=== PATIENT | male | born 1970 | race Caucasian/White ===

== ENCOUNTER → 2016-06-09 | Outpatient (CLI) | payer OTHER | LOC: KOH-I 13:27 | DX: M54.2 Cervicalgia (principal); M54.9 Dorsalgia, unspecified; M50.30 Other cervical disc degeneration, unspecified cervical region; M47.814 Spondylosis without myelopathy or radiculopathy, thoracic region | CPT/HCPCS: 72050; 72070; 72110 ==

== ENCOUNTER → 2020-10-12 | Outpatient (CLI) | payer OTHER ==
[~2020-10-12] MED LIST: BACTROBAN OINT22 GM EXT; BUPRENORPHIN-N1 EACH SL; CELEBREX100 MG PO; CITALOPRAM HBR40 MG PO; GABAPENTIN800 MG PO; LISINOPRIL5 MG PO; MONTELUKAST SOD10 MG PO; PROTONIX 40 MG40 M1 PO; SYMBICORT 16010.2 GM INH; TIZANIDINE HCL4 MG PO
== END ==
LOC: KOH-I 16:16
DX: R05 Cough (principal); M54.5 Low back pain; M50.321 Other cervical disc degeneration at C4-C5 level; M51.35 Other intervertebral disc degeneration, thoracolumbar region; G95.89 Other specified diseases of spinal cord
CPT/HCPCS: 71046; 72040; 72070; 72080; 72100

== ENCOUNTER 2020-12-06 16:54 | Inpatient (IN) | payer OTHER ==
[~2020-12-06] VITALS: Ht 172.7 cm; Wt 86.0 kg
[2020-12-06 17:38] LABS: HEMOGLOBIN 12.2 gm/dl (14.0-17.5); RED BLOOD COUNT 4.33 M/UL (4.20-5.50); WHITE BLOOD COUNT 6.9 K/UL (4.5-11.0)
[2020-12-06 18:35] LABS: BUN/CREATININE RATIO 15 (0-10)
[2020-12-07 03:46] LABS: HEMOGLOBIN 11.6 gm/dl (14.0-17.5); RED BLOOD COUNT 4.15 M/UL (4.20-5.50); WHITE BLOOD COUNT 8.3 K/UL (4.5-11.0)
[2020-12-07 04:13] LABS: BUN/CREATININE RATIO 14 (0-10)
[2020-12-07] MEDS ORDERED: TIZANIDINE HCL4 MG PO (21:17)
[2020-12-07] MEDS ORDERED: BUPRENORPHIN-N1 EACH SL (21:18)
[2020-12-07] MEDS ORDERED: BACTROBAN OINT22 GM EXT (21:18)
[2020-12-07] MEDS ORDERED: GABAPENTIN800 MG PO (21:19)
[2020-12-07] MEDS ORDERED: CITALOPRAM HBR40 MG PO (21:19)
[2020-12-07] MEDS ORDERED: MONTELUKAST SOD10 MG PO (21:20)
[2020-12-07] MEDS ORDERED: SYMBICORT 16010.2 GM INH (21:20)
[2020-12-07] MEDS ORDERED: LISINOPRIL5 MG PO (21:20)
[2020-12-07] MEDS ORDERED: PROTONIX 40 MG40 M1 PO (21:20)
[2020-12-08 04:38] LABS: HEMOGLOBIN 11.1 gm/dl (14.0-17.5); RED BLOOD COUNT 3.99 M/UL (4.20-5.50)
[2020-12-08 04:42] LABS: WHITE BLOOD COUNT 5.8 K/UL (4.5-11.0)
[2020-12-08 04:59] LABS: BUN/CREATININE RATIO 9 (0-10)
[2020-12-09 04:32] LABS: HEMOGLOBIN 11.9 gm/dl (14.0-17.5); RED BLOOD COUNT 4.28 M/UL (4.20-5.50)
[2020-12-09 04:55] LABS: BUN/CREATININE RATIO 20 (0-10)
[2020-12-10 05:04] LABS: HEMOGLOBIN 11.3 gm/dl (14.0-17.5); RED BLOOD COUNT 4.01 M/UL (4.20-5.50); WHITE BLOOD COUNT 8.4 K/UL (4.5-11.0)
[2020-12-10 05:25] LABS: BUN/CREATININE RATIO 39 (0-10)
[2020-12-11 05:13] LABS: HEMOGLOBIN 12.6 gm/dl (14.0-17.5); RED BLOOD COUNT 4.48 M/UL (4.20-5.50); WHITE BLOOD COUNT 14.6 K/UL (4.5-11.0)
[2020-12-11 05:40] LABS: BUN/CREATININE RATIO 32 (0-10)
[2020-12-11 20:11] LABS: ORGANISM ID Not indicated. (.); SPECIMEN SOURCE Urine (.); STREPTOCOCCUS PNEUMONIAE AG Negative (Negative)
[2020-12-12 05:43] LABS: HEMOGLOBIN 14.3 gm/dl (14.0-17.5); WHITE BLOOD COUNT 11.8 K/UL (4.5-11.0)
[2020-12-12 05:48] LABS: RED BLOOD COUNT 5.04 M/UL (4.20-5.50)
[2020-12-12 06:06] LABS: BUN/CREATININE RATIO 32 (0-10)
[2020-12-14 04:27] LABS: RED BLOOD COUNT 5.26 M/UL (4.20-5.50); WHITE BLOOD COUNT 10.2 K/UL (4.5-11.0)
[2020-12-14 04:50] LABS: BUN/CREATININE RATIO 32 (0-10)
[2020-12-15] MEDS ORDERED: CELEBREX100 MG PO (16:58)
== END 2020-12-15 18:15 | disposition home or self-care (01) | DRG 917 ==
LOC: ER1 16:54 → CCU 18:53 → CDU 18:53 → CCU 20:55 → MED SURG 4 12-11 16:56
PROVIDERS: Emergency Medicine; Internal Medicine; Internal Medicine Infectious Disease; Internal Medicine Pulmonary Disease; Physician Assistant Medical; ADMIT Internal Medicine
PROC: 5A1945Z Respiratory Ventilation, 24-96 Consecutive Hours (ICD-10-PCS; principal; 2020-12-06)
PROC: 0BH17EZ Insertion of Endotracheal Airway into Trachea, Via Natural or Artificial Opening (ICD-10-PCS; 2020-12-06)
PROC: B24BZZ4 Ultrasonography of Heart with Aorta, Transesophageal (ICD-10-PCS; 2020-12-07)
DX: T43.621A Poisoning by amphetamines, accidental (unintentional), initial encounter (principal); G92 Toxic encephalopathy; J69.0 Pneumonitis due to inhalation of food and vomit; J96.01 Acute respiratory failure with hypoxia; K85.90 Acute pancreatitis without necrosis or infection, unspecified; J15.212 Pneumonia due to Methicillin resistant Staphylococcus aureus; F10.139 Alcohol abuse with withdrawal, unspecified; J44.1 Chronic obstructive pulmonary disease with (acute) exacerbation; J44.0 Chronic obstructive pulmonary disease with (acute) lower respiratory infection; E87.2 Acidosis; Z20.822 Contact with and (suspected) exposure to COVID-19; I10 Essential (primary) hypertension; E87.6 Hypokalemia; I07.1 Rheumatic tricuspid insufficiency; K21.9 Gastro-esophageal reflux disease without esophagitis; J44.9 Chronic obstructive pulmonary disease, unspecified; Z88.0 Allergy status to penicillin; Z88.8 Allergy status to other drugs, medicaments and biological substances
CPT/HCPCS: ECHO; 36415; 36600; 70450; 71045; 80048; 80053; 80061; 80307; 81001; 82009; 82150; 82550; 82553; 82803; 82962; 83605; 83615; 83690; 83735; 83880; 84100; 84132; 84484; 85025; 85027; 85384; 85610; 85730; 86140; 87040; 87070; 87081; 87205; 87278; 87899; 93005; 93306; 94002; 94003; 94640; 94760; 96374; 97110-GP-CQ; 97116-GP-CQ; 97162; 99285; A6212; C9113; G0480; J0360; J1630; J1650; J1940; J2060; J2185; J2250; J2270; J2310; J2704; J2920; J3370; J3411; J3475; J3480; J3486; J7030; U0002

== ENCOUNTER → 2021-12-02 | Outpatient (CLI) | payer OTHER | LOC: KOH-I 12:54 | DX: M50.322 Other cervical disc degeneration at C5-C6 level (principal); M51.34 Other intervertebral disc degeneration, thoracic region; M54.50 Low back pain, unspecified; R05.9 Cough, unspecified; M47.816 Spondylosis without myelopathy or radiculopathy, lumbar region | CPT/HCPCS: 71046; 72040; 72070; 72100 ==